=== PATIENT | male | born 1945 | race Caucasian/White ===

== ENCOUNTER 2017-03-17 09:57 | Day surgery (SDC) | payer MEDICARE, OTHER ==
[2017-03-17] MEDS ORDERED: fentaNYL 100 MCG/2 ML SDV ONE (10:08)
[2017-03-17] MEDS ORDERED: Midazolam 1 MG/ML 2 ML SDV ONE (10:08)
[2017-03-17] MEDS ORDERED: Propofol 200 MG/20 ML SDV ONE (10:08)
[2017-03-17] MEDS ORDERED: Lactated Ringers 1,000 ML IV SCH (11:30)
[2017-03-17 13:24] VITALS: BP 119/52
--- NOTE | 2017-03-18 07:53 | OR ---
DATE OF PROCEDURE: 03/17/2017 PREOPERATIVE DIAGNOSIS: History of adenomatous polyps. POSTOPERATIVE DIAGNOSIS: Diverticulosis, small transverse colon polyp, history of adenomatous polyps. PROCEDURE: Colonoscopy to the cecum with biopsy resection of small transverse colon polyp. SURGEON: Remington Plunkett MD ANESTHESIA: IV anesthesia with monitored anesthesia care. INDICATION: This 71-year-old white male is referred for a colonoscopy. He has a history of adenomatous colon polyps. His last colonoscopic exam he says was done eight years ago. I counseled him for the procedure including risks and alternatives, and he gave his informed consent to proceed. DESCRIPTION OF PROCEDURE: The patient was placed in the left lateral decubitus position. IV anesthesia was administered by the Anesthesia Service. Time-out was held. A rectal exam was performed, which was unremarkable. The flexible video Olympus colonoscope was introduced through his anus, up his rectum, and out his colon all the way to the cecum. En route, we saw several left-sided diverticula. There was no bleeding or inflammation associated with them. Additionally, in the transverse colon, we saw a polyp which was fairly small. We removed it with several bites of the biopsy forceps. Once the cecum was reached , the scope was slowly withdrawn examining the mucosa throughout. No additional mucosal abnormalities were noted. The scope was retroflexed in the rectum with the distal rectum appearing unremarkable. The scope was straightened and removed. He tolerated the procedure well. Remington Plunkett MD /[id number]
== END 2017-03-17 13:15 | disposition home or self-care (01) ==
LOC: JP.SDS 09:57
PROVIDERS: ATTEND Surgery
DX: Z12.11 Encounter for screening for malignant neoplasm of colon (principal); D12.3 Benign neoplasm of transverse colon; I25.10 Atherosclerotic heart disease of native coronary artery without angina pectoris; I10 Essential (primary) hypertension; K57.30 Diverticulosis of large intestine without perforation or abscess without bleeding; Z86.010 Personal history of colon polyps; Z79.899 Other long term (current) drug therapy
CPT/HCPCS: 45380; 88305; J2250; J2704; J3010; J7120